=== PATIENT | male | born 1955 | race Caucasian/White ===

== ENCOUNTER → 2019-03-29 | Outpatient (CLI) | payer OTHER | END | disposition home or self-care (01) | LOC: PUL 09:57 | PROVIDERS: ATTEND Nurse Practitioner Family | DX: C34.90 Malignant neoplasm of unspecified part of unspecified bronchus or lung (principal) | CPT/HCPCS: 94010; 94726; 94729 ==

== ENCOUNTER → 2019-04-18 | Outpatient (CLI) | payer OTHER | END | disposition home or self-care (01) | LOC: EKG 10:32 | PROVIDERS: ATTEND Nurse Practitioner Family | DX: Z01.818 Encounter for other preprocedural examination (principal) | CPT/HCPCS: 93005 ==